=== PATIENT | female | born 1975 | race Caucasian/White ===

== ENCOUNTER → 2020-10-06 18:02 | Outpatient (CLI) | payer OTHER, SELFPAY ==
--- NOTE | ~2020-10-06 | MM_ITS ---
EXAMINATION: MM screening [facility] BI w estella HISTORY: Screening mammogram TECHNIQUE: Craniocaudal and mediolateral oblique 3-D tomosynthesis images were obtained and synthetic 2-D images were generated. CAD analysis was submitted and interpreted. COMPARISON: 05/22/2019, 05/04/2019, 03/02/2018 BREAST PARENCHYMAL COMPOSITION: There are scattered areas of fibroglandular density. FINDINGS: There is no evidence of suspicious mass, calcification, or architectural distortion to sugg est malignancy in either breast. There has been no suspicious interval change. IMPRESSION: 1. No mammographic evidence of malignancy. 2. Recommend routine screening mammography in one year. BI-RADS Category 1: Negative Reviewed, dictated and finalized at location A.
== END ==
PROVIDERS: Visit Provider Obstetrics & Gynecology Gynecology
DX: Z12.31 Encounter for screening mammogram for malignant neoplasm of breast (principal)
CPT/HCPCS: 77063; 77067

== ENCOUNTER → 2022-08-13 15:15 | Outpatient (CLI) | payer OTHER, SELFPAY ==
--- NOTE | ~2022-08-13 | MM_ITS ---
EXAMINATION: MM screening [facility] BI w estella HISTORY: Screening mammogram TECHNIQUE: Craniocaudal and mediolateral oblique 3-D tomosynthesis images were obtained and synthetic 2-D images were generated. CAD analysis was submitted and interpreted. COMPARISON: 10/06/2020 bilateral screening mammogram 05/22/2019 bilateral diagnostic mammogram 05/04/2019, 03/02/2018 bilateral screening mammogram examinations BREAST PARENCHYMAL COMPOSITION: There are scattered areas of fibroglandular density. FINDINGS: There is no evidence of suspicious mass, calcification, or architectural distortion to sugg est malignancy in either breast. There has been no suspicious interval change. IMPRESSION: 1. No mammographic evidence of malignancy. 2. Recommend routine screening mammography in one year. BI-RADS Category 1: Negative Reviewed, dictated and finalized at location A. E FINISHER
== END ==
PROVIDERS: PCP Nurse Practitioner; Visit Provider Nurse Practitioner
DX: Z12.31 Encounter for screening mammogram for malignant neoplasm of breast (principal)
CPT/HCPCS: 77063; 77067

== ENCOUNTER 2023-08-31 15:33 | Outpatient (CLI) | payer OTHER, SELFPAY ==
--- NOTE | ~2023-08-31 | US_ITS ---
EXAMINATION: US thyroid DATE: 08/31/2023 15:51 INDICATION: Nontoxic goiter, unspecified. TECHNIQUE: Multiple ultrasound images of the thyroid were obtained. COMPARISON: Ultrasound 01/08/2013 FINDINGS: The right thyroid lobe measures 6.4 x 2.6 x 2.1 cm. The left thyroid lobe measures 6.8 x 3.1 x 3.7 c m. In the right thyroid lobe, there is a 2.8 cm solid, hypoechoic, wider than tall nodule with ill-d efined margin without echogenic foci (TI-RADS TR4), worsened from 01/08/13. In the left thyroid lobe, there is a 3.4 cm mixed cystic and solid, hypoechoic, wider than tall nodule with ill-defined margin without echogenic foci (TR3), stable from 01/08/13. In the left thyroid lobe, there is a 3.0 cm solid, hypoechoic, wider than tall nodule ill-defined margin without echogenic foci (TR4), worsened from . In the thyroid isthmus, there is a 3.0 cm predominantly solid, hypoechoic, wider than tall nod ule with smooth margin without echogenic foci (TR4), worsened from 01/08/13. IMPRESSION: 1. Multinodular goiter. Ultrasound-guided fine-needle aspiration of 2 nodules is recommended. Reviewed, dictated and finalized at location A. IMPRESSION: 1. Multinodular goiter. Ultrasound-guided fine-needle aspiration of 2 nodules i s recommended.
== END 2023-08-31 15:34 ==
PROVIDERS: PCP Obstetrics & Gynecology Gynecology; Visit Provider Family Medicine
DX: Z00.00 Encounter for general adult medical examination without abnormal findings (principal); E04.2 Nontoxic multinodular goiter
CPT/HCPCS: 76536

== ENCOUNTER 2023-09-28 12:32 | Outpatient (CLI) | payer OTHER, SELFPAY ==
--- NOTE | ~2023-09-28 | US_ITS ---
EXAMINATION: 1. US FNA additional 2. US FNA w image guidance DATE: 09/28/2023 13:55 INDICATION: Multinodular goiter. TECHNIQUE: The procedure and its benefits and risks were discussed with the patient. Risks specifically discusse d included bleeding. The patient verbalized understanding of the risks and agreed to proceed. The nec k was prepped and draped in the usual sterile manner. 1% lidocaine was used for local anesthesia. S ix passes were made with a 25G needle into the lesion in thyroid isthmus under ultrasound guidance. 7 passes were made with a 25-gauge needle into the lesion in left thyroid lobe under ultrasound bessy nce. There were no immediate complications. FINDINGS: Grayscale ultrasound images demonstrate needles advanced into a 3.0 cm nodule in thyroid isthmus for biopsy. Grayscale ultrasound images demonstrate needles advanced into a 3.0 cm nodule in inferior lef t thyroid lobe. IMPRESSION: 1. Ultrasound-guided fine needle aspiration of a nodule in thyroid isthmus. 2. Ultrasound-guided fine needle aspiration of a nodule in inferior left thyroid lobe. Reviewed, dictated and finalized at location A. IMPRESSION: 1. Ultrasound-guided fine needle aspiration of a nodule in thyroid isthmus. 2. Ultrasound-guided fine needle aspiration of a nodule in inferior left thyroi d lobe.
== END 2023-09-28 12:33 | disposition home or self-care (01) ==
PROVIDERS: PCP Family Medicine; Visit Provider Family Medicine
DX: E04.1 Nontoxic single thyroid nodule (principal)
CPT/HCPCS: 10005; 10006; 88172; 88173; 88305

== ENCOUNTER 2023-12-10 08:10 | Outpatient (CLI) | payer OTHER, SELFPAY ==
--- NOTE | ~2023-12-10 | MM_ITS ---
EXAMINATION: MM screening [facility] BI w estella HISTORY: Screening mammogram TECHNIQUE: Craniocaudal and mediolateral oblique 3-D tomosynthesis images were obtained and synthetic 2-D images were generated. CAD analysis was submitted and interpreted. COMPARISON: 08/13/2022, 10/06/2020, 05/22/2019 BREAST PARENCHYMAL COMPOSITION:Not Dense. There are scattered areas of fibroglandular density. FINDINGS: No suspicious mass, calcification, or architectural distortion are identified in either sarahi ast to suggest malignancy. There has been no suspicious interval change. IMPRESSION: No mammographic evidence of malignancy. Recommend routine screening mammography in one year. BI-RADS Category 1: Negative Reviewed, dictated and finalized at location .
== END 2023-12-10 08:11 ==
PROVIDERS: PCP Obstetrics & Gynecology Gynecology; Visit Provider Obstetrics & Gynecology Gynecology
DX: Z12.31 Encounter for screening mammogram for malignant neoplasm of breast (principal)
CPT/HCPCS: 77063; 77067

== ENCOUNTER 2025-01-04 09:24 | Emergency (ER) | payer OTHER, SELFPAY ==
--- NOTE | 2025-01-04 09:26 | ED.LOWEXIN ---
HPI - Extremity Injury (Lower) General Chief Complaint: Wound/Laceration Stated Complaint: leg injury Time Seen by Provider: 01/04/25 09:36 Source: patient, RN notes reviewed and old records reviewed Mode of arrival: ambulatory Limitations: no limitations History of Present Illness HPI Narrative: 49-year-old female presents to the [facility] with a dog bite to the right lateral calf. Bleeding controlled. Patient states that she was walking when a neighbor's dog bit her in the lower leg. States that she did speak with her neighbor, dog is up-to-date on immunizations Last Tdap 2017 Onset (ago): hour(s) (1) Treatments prior to arrival: bandage Related Data Home Medications ?Medication ?Instructions ?Recorded ?Confirmed ?Last Taken ?Type No Home Medications 08/18/22 01/04/25 Unknown History Allergies Allergy/AdvReac Type Severity Reaction Status Date / Time No Known Allergies Allergy Verified 01/04/25 09:37 Review of Systems Review of Systems: All systems reviewed & are unremarkable except as noted in HPI and below Constitutional: Constitutional: Reports no additional constitutional complaints Musculoskeletal: Musculoskeletal: Reports no additional musculoskeletal complaints Integumentary/Breasts: Skin/Breast: Reports as per HPI and Reports wounds PMFSH Family History Family History Grandparent Hypertension Family history of cardiovascular disease Mother Family history of allergic disorder Hypertension Grandparent Hypertension Social History Social History Smoking status: Never smoker Second hand tobacco smoke exposure: No Alcohol intake: current Drinks per week: 2 Substance use: never Substance use type: does not use Do You Feel Safe in your Home?: Yes Lack of Transportation: No Lack of Food: Never True Current Housing: I Have Housing Concerned About Future Housing: No Difficulty Paying Gas/Electric Bills: No Difficulty Paying for Meds: No Currently Unemployed: No Education: Master's Degree or Higher Difficulty w/ Childcare or Family Care: No Occupation/Education: occupation Additional occupation/education comments: Teacher Gender identity (if verbalized by the patient): Female Comments At the time of my signature, I reviewed and agree with the nursing past medical, surgical, social, and family history. There is no relevant family history pertinent to the patient complaint. Exam Const: General: cooperative, healthy appearing, comfortable, no acute distress, well developed, alert and well nourished Nutritional Appearance: well nourished Orientation/consciousness: patient oriented x3 Limitations: no limitations HENMT: Head: normal to inspection Eyes: General: appearance normal, both eyes and all related structures Alignment and Position: alignment normal Neck: Neck: normal visual inspection, full ROM, no lymphadenopathy and no meningeal signs Chest: Chest palpation & inspection: normal inspection of the chest Resp: Effort & Inspection: normal respiratory effort and able to speak in complete sentences Cardio: Rate: regular rate Skin: General skin exam: normal color and no rashes or lesions noted Wounds: wounds noted laceration right lateral lower leg size (3), drainage and other (Surrounding ecchymosis); without any surrounding erythema Full body images:  1. 3 cm laceration, surrounding ecchymosis, surrounding abrasions from probable dog teeth. Neuro: General: patient oriented x3, gait normal, moves all extremities and no meningeal signs Cognition (Neuro): normal cognition Speech: normal speech Gait exam (Neuro): Normal gait present Extrem: General: normal to inspection, full ROM, capillary refill normal and normal gait Right lower extremity: full ROM, normal capillary refill, knee Details: normal to inspection and normal ROM, lower leg Details: tenderness, localized swelling, abrasion, laceration and ecchymosis; no erythema and ankle Details: normal to inspection and normal ROM Psych: Appearance: grossly normal and well kempt Mental Status: mental status grossly normal Speech and movement: Normal speech and movement present and Clear speech present Affect: normal affect Attitude: cooperative Course Course Level of Care: [facility] Visit Vital Signs Vital signs: Vital Signs Temperature 98.2 F 01/04/25 09:36 Pulse Rate 69 01/04/25 09:36 Respiratory Rate 14 01/04/25 09:36 Blood Pressure 121/77 01/04/25 09:36 Pulse Oximetry 100 01/04/25 09:36 Oxygen Delivery Room Air 01/04/25 09:36 Temperature 98.2 F 01/04/25 09:36 Pulse Rate 69 01/04/25 09:36 Respiratory Rate 14 01/04/25 09:36 Blood Pressure 121/77 01/04/25 09:36 Pulse Oximetry 100 01/04/25 09:36 Oxygen Delivery Room Air 01/04/25 09:36 Reviewed Procedures Laceration Laceration 1: Date: 01/04/25 Time: 09:55 Site: lower extremity Side (If applicable): right Size (cm): 3 Description: linear Depth: simple, single layer Local Anesthetic: lidocaine 1% Amount of anesthesia used (mL): 6 Pre-repair: wound explored and irrigated extensively (1000) ====== Skin Level ====== Skin layer closed with: nylon Size (cm): 4-0 Number of sutures: 3 Technique: simple, interrupted ====== Subcutaneous Layer ====== ====== Muscle Layer ====== ====== Tendon Layer ====== Dressing: Procedure explained, verbal consent obtained. Patient presents 1 hour post dog bite. Area cleaned with Betadine, lidocaine injections done, anesthesia achieved. Irrigated with a total of 1000mls. Three sutures placed, brought wound together but not completely approximated due to it being a dog bite. Had discussed this previous with patient, risks of infection. Patient tolerated procedure well. MDM - Extremity Injury (Lower) MDM Narrative Medical decision making narrative: Patient sitting in exam room. Patient is nontoxic, vitals are stable. Patient presents with a dog bite. Updated tetanus. Discussed patient that due to it being an animal bite that we can bring the edges together by suturing it. But will not completely close the wound. Verbal consent obtained. Area sutured, patient tolerated procedure. Antibiotics prescribed. Patient appropriate for outpatient treatment with close follow-up Discharge instructions reviewed with patient, as well as provided in writing per nursing staff. The instructions also include specific and strict return/GO TO THE ER as well as f/u information. All questions have been answered, and the patient deny any further questions with discharge and discharge plan. Some parts of this dictation were generated by voice recognition software and may contain typographical and/or grammatical inaccuracies. Differential Diagnosis Differential diagnosis: Likely other (Dog bite, puncture wound, abrasion, laceration) Critical Care Time Critical Care Time Critical Care Time: No Discharge Plan Discharge Clinical Impression: Dog bite of right lower leg Qualifiers: Encounter type: initial encounter Qualified Code(s): S81.851A - Open bite, right lower leg, initial encounter; W54.0XXA - Bitten by dog, initial encounter Patient Disposition: Home Condition: Stable Instructions: Antibiotic Form, Animal Bite (ED), Care For Your Stitches (DC) Additional Instructions: Keep area clean and dry. Wash with warm soapy water twice daily, pat dry. Take antibiotic to reduce the chances of infection Apply ice every 2-3 hours for 15-20 minutes while Take Motrin alternating with Tylenol as needed for pain per package instructions Keep area covered while draining or when not at home. Try to leave open to air for 4-5 hours per day. Watch for signs of infection which include thick green, yellow white drainage. Area would be swollen, hot to touch. Over the next 72 hours you may have some mild swelling, bruising will occur her. You may have some clear to within reddish drainage, this is normal. Follow-up with your primary care provider to have sutures removed in 10-14 days Patient Language: Mongolian Prescriptions: New amoxicillin-pot clavulanate 875-125 mg tablet 1 tablet PO Q12H Qty: 20 0RF No Action No Home Medications Follow-up/Referrals: Ivory Lim MD [Primary Care Provider] - 2 Weeks ([facility] follow-up, suture remove) Time of Disposition: 10:19
--- OUTSIDE RECORDS SUMMARY | 2025-01-04 09:26 | XMS_ITS | Clinical Summary ---
Author Organization [facility] Address [facility] [place] [address] Care Team Providers Care Compliance Aide Name Role Phone Unavailable Primary Care Provider Unavailabl e Immunizations Immunization Administration Dates Next Due MODERNA COVID-19 (12+) MRNA, LNP-S, PF, 100 MCG/ 0.5 ML DOSE 08/22/2020,07/25/2020 Social History Tobacco Use Types Packs/Day Years Used Date Smoking Tobacco: Never Assessed Comments Unknown Sex and Gender Information Value Date Recorded Sex Assigned at Not on file Legal Sex Female 6:55 PM CDT Gender Identity Not on file Sexual Orientation Not on file Plan of Treatment Health Maintenance Due Date Last Done Comments Cervical Cancer Screening Pa p Smear (Age 30 to 64) Every 3 Years 1976 Colorectal Cancer Screening Colonoscopy (10 Years) 1976 Annual Physical 1979 Hepatitis C 1994 DTaP, Tdap and Td Vaccines ( 1 - Tdap) 1995 Hepatitis B Vaccines (1 of 3 - 19+ 3-dose series) 1995 Cervical Cancer Screening Pa p with HPV Testing (Age 30 to 64) Every 5 Years 2006 Cervical Cancer Screening wi th HPV 2006 Mammogram Screening 2016 COVID-19 Vaccine (2023-2 5 season) 2024 08/22/2020, 07/25/2020 Meningococcal B Vaccine Aged Out No l onger eligible based on patient's age to complete this topic Meningococcal Vaccine Aged Out No meghan eun eligible based on patient's age to complete this topic Pneumococcal Vaccine: Pediatrics (0 to 5 Years) and At-Risk Patients (6 to 49 Years) Aged Out No longer eligible b ased on patient's age to complete this topic RSV Immunizations Under 20 Months Aged Out No longer eligible b ased on patient's age to complete this topic
[2025-01-04 09:36] VITALS: BP 121/77; PULSE 69; RESP 14; TEMP 36.8; O2SAT 100
[2025-01-04] MEDS: LIDOCAINE 1% LOCAL INJ 2 ML AMPUL 6 ML INFILTRATE (09:50)
[2025-01-04] MEDS: TETANUS,DIPHTHERIA,AC PERTUSSIS ADULT (0.5 ML) BOOSTRIX IM (09:50)
== END 2025-01-04 10:32 | disposition home or self-care (01) ==
PROVIDERS: Emergency Provider Nurse Practitioner; PCP Family Medicine
DX: S81.811A Laceration without foreign body, right lower leg, initial encounter (principal); W54.0XXA Bitten by dog, initial encounter; Z23 Encounter for immunization
CPT/HCPCS: 12002; 90471; 90715; 99213; G0463; J2003